=== PATIENT | female | born 1960 | race Caucasian/White ===

== ENCOUNTER → 2016-09-11 | Outpatient (CLI) | payer BC ==
[~2016-09-11] MED LIST: AMLO10TA80 PO; HYDR-523 PO; SERT100T PO
[2016-09-11 10:44] LABS: BASOPHILS % 0.7 % (0.0-2.0); HEMOGLOBIN. 12.7 g/dL (12.0-16.0); LYMPHOCYTES % 31.2 % (20.0-50.0); MEAN CORPUSCULAR HEMOGLOBIN 29.6 pg (28.0-32.0); MEAN CORPUSCULAR VOLUME 85.9 fL (81.0-99.0); MEAN PLATELET VOLUME 8.1 fl (7.4-10.4); MONOCYTES % 6.2 % (2.0-8.0); NEUTROPHILS % 59.9 % (40.0-76.0); PLATELET 131 x1000/uL (130-400); RED CELL DISTRIBUTION WIDTH 14.3 % (11.6-14.6)
[2016-09-11 10:52] LABS: CLARITY URINE CLEAR (CLEAR); COLOR URINE YELLOW (YELLOW); GLUCOSE URINE NEGATIVE (NEGATIVE); KETONES URINE NEGATIVE (NEGATIVE); LEUKOCYTE ESTERASE URINE NEGATIVE (NEGATIVE); NITRITE URINE NEGATIVE (NEGATIVE); OCCULT BLOOD URINE NEGATIVE (NEGATIVE); PH URINE 6.5 (4.5-8.0); PROTEIN URINE 1+ (NEGATIVE); SPECIFIC GRAVITY URINE 1.013 (1.005-1.030); UROBILINOGEN URINE 0.2 E.U./dL (0.2-1.0)
[2016-09-11 10:54] LABS: PARTIAL THROMBOPLASTIN TIME 25.3 sec (24.0-34.0); PROTHROMBIN TIME 10.5 sec
[2016-09-11 10:59] LABS: CARBON DIOXIDE 30 mEq/L (21-32); CHLORIDE 98 mEq/L (98-107)
== END | disposition home or self-care (01) ==
LOC: LAB 09:54
PROVIDERS: ATTEND Internal Medicine Critical Care Medicine
DX: Z01.818 Encounter for other preprocedural examination (principal); I10 Essential (primary) hypertension
CPT/HCPCS: 36415; 71020; 80053; 81001; 85025; 85610; 85730; 87086; 93005

== ENCOUNTER 2016-09-25 05:48 | Day surgery (SDC) | payer BC ==
[~2016-09-25] VITALS: Ht 165.1 cm; Wt 83.9 kg
[~2016-09-25 05:48] MED LIST changes: +ATEN50TA PO; +BUTA1CAP47 PO; +LORA1TAB PO; +NORT50CA PO; +TRIA1CAP6 PO
[2016-09-25] MEDS ORDERED: METHYLENE BLUE 1% VIAL 1ML INJ STA (07:27)
[2016-09-25] MEDS ORDERED: METHYLENE BLUE 50 MG/10 ML AMP IV SCH (07:45)
[2016-09-25] MEDS ORDERED: LACTATED RINGERS 1,000 ML IV SCH (08:00)
[2016-09-25] MEDS ORDERED: SKIN ADHESIVE 0.7 GM EA TOP ONE (08:06)
[2016-09-25] MEDS ORDERED: BUPIVACAINE HCL 0.5% (5MG/ML) 50ML ONE (08:06)
[2016-09-25] MEDS ORDERED: LIDOCAINE HCL 1% 20ML VIAL (Pyxis) INJ ONE ×2 (08:21→13:00)
[2016-09-25] MEDS ORDERED: PROPOFOL 200MG/20ML VIAL IV ONE (08:59)
[2016-09-25] MEDS ORDERED: ALBUTEROL 90MCG/PUFF 17GM INHALER INH ONE (09:34)
[2016-09-25] MEDS ORDERED: MIDAZOLAM HCL 2 MG/2 ML VIAL ONE (10:01)
[2016-09-25] MEDS ORDERED: CEFAZOLIN SODIUM 1000MG/VIAL ONE (10:07)
[2016-09-25] MEDS ORDERED: FENTANYL CITRATE/PF 50MCG/ML 2ML VIAL ONE (10:11)
[2016-09-25] MEDS ORDERED: DEXAMETHASONE 4MG/ML 1ML VIAL ONE (10:13)
[2016-09-25] MEDS ORDERED: METOCLOPRAMIDE HCL 10MG/2ML VIAL ONE (10:13)
[2016-09-25] MEDS ORDERED: ONDANSETRON HCL 4MG/2ML VIAL ONE (10:13)
[2016-09-25] MEDS ORDERED: HYDROMORPHONE HCL/PF 2MG/ML CPJ IV PRN (10:45)
[2016-09-25] MEDS ORDERED: ONDANSETRON HCL 4MG/2ML VIAL IV PRN (10:45)
[2016-09-25] MEDS ORDERED: SODIUM CHLORIDE 0.9% 1,000 ML IV SCH (11:30)
[2016-09-25] MEDS ORDERED: SODIUM CHLORIDE 0.9% 10ML VIAL ONE (13:00)
== END 2016-09-25 12:30 | disposition home or self-care (01) ==
LOC: OR 05:48
PROVIDERS: ATTEND Surgery
DX: N63 Unspecified lump in breast (principal)
CPT/HCPCS: 19125; 19281; 88307; A4216; G0168; J0690; J1100; J2250; J2405; J2765; J3010; J3490; J7120; J2704; Q9968